=== PATIENT | female | born 1970 | race Caucasian/White ===

== ENCOUNTER 2021-11-27 07:27 | Emergency (ER) | payer SELFPAY ==
[~2021-11-27] VITALS: Ht 149.9 cm; Wt 65.3 kg
[2021-11-27 07:31] VITALS: BP 132/83
--- NOTE | 2021-11-27 07:58 | NUR ---
pt taken to us via wheelchair
[2021-11-27] MEDS ORDERED: KETOROLAC 15 MG/ML VIAL IVP ONE (09:55)
[2021-11-27] MEDS ORDERED: KETOROLAC 60 MG/2 ML VIAL IM ONE (09:55)
--- NOTE | 2021-11-27 10:17 | NUR ---
PT MOVED TO ER BED 9
[2021-11-27] MEDS ORDERED: cefTRIAXone 1,000 MG VIAL ONE (10:35)
[2021-11-27 11:03] LABS: BASOPHILS # (AUTO) 0.1 K/uL (0.00-0.22); EOSINOPHILS # (AUTO) 0.4 K/uL (0-0.4); EOSINOPHILS % (AUTO) 6.8 % (0.0-4.0); HEMOGLOBIN 12.7 g/dL (12.0-16.0); LYMPHOCYTES # (AUTO) 1.9 K/uL (2.5-16.5); LYMPHOCYTES % (AUTO) 34.6 % (20.5-51.1); MEAN CORPUSCULAR HEMOGLOBIN 28 pg (27-31); MEAN CORPUSCULAR HGB CONC 34 g/dL (33-37); MEAN CORPUSCULAR VOLUME 84.5 fL (80-94); MONOCYTES # (AUTO) 0.5 K/uL (0.8-1.0); MONOCYTES % (AUTO) 9.3 % (1.7-9.3); NEUTROPHILS # (AUTO) 2.7 K/uL (1.8-7.7); NEUTROPHILS % (AUTO) 48.3 % (42.2-75.2); PLATELET COUNT (AUTO) 420 K/uL (140-450); RED BLOOD CELL COUNT(AUTO) 4.49 MIL/uL (4.20-5.40); RED CELL DISTRIBUTION WIDTH 13.5 % (11.6-13.7); WHITE BLOOD COUNT (AUTO) 5.6 K/uL (4.8-10.8)
--- NOTE | 2021-11-27 11:03 | NUR ---
pt c/o ruq abdominal pain x3 days. iv inserted to right hand #[id number] medicated per order. nad. safety maintained.
--- NOTE | 2021-11-27 11:12 | NUR ---
ASSUMED CARE FOR PATIENT AT THIS TIME
--- NOTE | 2021-11-27 11:26 | NUR ---
Patient appears to be resting comfortably in bed. Vital Signs within normal limits. Respirations even and unlabored.
[2021-11-27 12:04] LABS: ALBUMIN 3.7 g/dL (3.4-5.0); ANION GAP 11.6 (8-16); CARBON DIOXIDE 26.5 mmol/L (21-32); CREATININE 0.6 mg/dL (0.6-1.3); POTASSIUM 4.1 mmol/L (3.5-5.1); TOTAL BILIRUBIN 0.3 mg/dL (0.0-1.0)
[2021-11-27] MEDS ORDERED: NAPR-1704 PO (12:40)
[2021-11-27] MEDS ORDERED: CEPH-588 PO (12:40)
[2021-11-27 12:51] VITALS: BP 118/70
--- NOTE | 2021-11-27 12:51 | NUR ---
Patient discharged with v/s stable. Written and verbal after care instructions given and explained. Patient alert, oriented and verbalized understanding of instructions. Ambulatory with steady gait. All questions addressed prior to discharge. ID band removed. Patient advised to follow up with PMD. Rx of keflex, naproxen given. Patient educated on indication of medication including possible reaction and side effects. Opportunity to ask questions provided and answered.
== END 2021-11-27 12:47 | disposition home or self-care (01) ==
LOC: MED 07:27
DX: N12 Tubulo-interstitial nephritis, not specified as acute or chronic (principal); Z90.49 Acquired absence of other specified parts of digestive tract
CPT/HCPCS: 36415; 76705; 80053; 81002; 83605; 83690; 85025; 87040; 96365; 96375; 99284; J0696; J1885; Q0092